=== PATIENT | female | born 2000 ===

== ENCOUNTER 2024-09-05 20:07 | Emergency (ER) | payer MEDICAID, SELFPAY ==
[2024-09-05 20:13] VITALS: BP 133/77; PULSE 89; RESP 16; TEMP 36.8; O2SAT 99; BMI 31.7
--- NOTE | 2024-09-05 20:14 | ED_ITS ---
HPI - General Adult General Chief complaint: Skin/Abscess/Foreign Body Stated complaint: 13 weeks preg/ has itchy rash on left side of face Time Seen by Provider: 09/05/24 22:05 History of Present Illness ED Provider: Brittny BROOKS narrative: The patient is a 24-year-old female. She says that she is approximately 13 weeks . 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 Since began however she developed a new skin problem on her face with a patch of erythema and swelling and vesicles that has been bothering her for almost 2 months. She has seen her bioinformatics technician and she has been on prescription benzoyl peroxide and has also tried a Cera Ve preparation of salicylic acid at the recommendation of her bioinformatics technician as well. She does not feel that either of these topical applications has been helpful. . She feels that the lesion is getting worse and so she came to the emergency room tonight. She says she has not had any culture taken of the lesion. She has not been on any oral antibiotics. Related Data Previous Rx's ?Medication ?Instructions ?Recorded clindamycin HCl 300 mg capsule 300 mg PO TID 8 days #2 4 caps 09/05/24 (Cleocin HCl) mupirocin 2 % topical ointment 1 appl topical TID #22 grams 09/05/24 (Centany) Allergies Allergy/AdvReac Type Severity Reaction Status Date / Time No Known Allergies Allergy Verified 09/05/24 20:16 Review of Systems 2 Review of Systems: Yes all other systems are reviewed and are negative PMFSH Social History Social History Advance Directives: No Advance Directives Information Provided: No Do you have a plan to hurt others: No Plan Physical Exam ED Vital Signs: Vital Signs - 24 hr 09/05/24 20:13 09/05/24 22:52 Temperature 98.3 F 98.3 F Pulse Rate 89 89 Respiratory Rate 16 16 Blood Pressure 133/77 133/77 Pulse Oximetry 99 99 Oxygen Delivery Method Room Air Room Air BMI result Body Mass Index 31.7 Const Other: The patient is a 24-year-old woman who was awake and alert. She has a dense patch of inflamed and pustular skin in the region of the left temporal fossa. Otherwise the patient looks entirely well. Orientation/consciousness: patient oriented x3 HENMT Other: The patient has an area of inflamed skin in the region of the left temporal fossa which is approximately 6 cm by 3 cm in size. The skin is mildly elevated and erythematous and inflamed with multiple white pustules. The face is otherwise unremarkable. Mucous membranes moist. Eyes Other: Pupils are round equal, conjunctivae are clear, extraocular movements intact . The eyes are normal and are not affected by the dense pustules in the left temporal fossa. The eyelids are normal. Neck Other: No appreciable cervical adenopathy. Neck is benign and supple. Resp Effort & Inspection: normal respiratory effort Auscultation: clear to auscultation bilaterally Cardio Rate: regular rate Rhythm: regular rhythm Heart sounds: S1 normal heart sound present and S2 normal heart sound present Skin Other: There is a dense patch of inflamed and pustular skin in the left temporal fossa Neuro General: patient oriented x3, moves all extremities, no focal motor deficits and CN's II-XI intact bilaterally Extrem Other: extremities are normal Course Course Course Narrative: 09/05/242013 JAMILAH Wen This is a Rapid Medical Examination (RME) performed by Jeremiah yMrick PA-C in triage. Full HPI, ROS, assessment and treatment plan per primary provider in the Main ED. Hx: 20 yo F 13 weeks here for eval of itchy rash to L side of face x2-3 months. reports the area is draining pus . saw PCP, prescribed creams without improvement. reports rash is getting worse. +erythematous pustular rash noted to L forehead/face. no mucous membrane involvement Medical Decision Making Medical Decision Making MDM Narrative: the patient is a 24-year-old female who says that she has a history of rosacea who is approximately 13 weeks and has had a skin outbreak in the region of the left temporal fossa for several weeks. She has a bioinformatics technician and has been seen at the dermatology office. She has a tried prescription strength benzoyl peroxide and also formulations with salicylic acid. She has had no improvement and comes to the emergency room at a frustration I think. I unroofed some of the pustular lesions and swab these for cultures. She will be started on clindamycin and topical mupirocin. She should follow up with the bioinformatics technician and her OB provider. She may speak with her OB provider before using either of these medications. Discharge Plan Discharge Clinical Impression: Facial cellulitis Patient Disposition: Home, Self-Care Additional Instructions: I have sent a prescription for antibiotic pills which you may try to see if it helps for this infection. I have also sent a prescription for a topical ointment which you may also try. The pill should be taken 3 times a day, approximately every 8 hours. The ointment should be applied 3 times a day, also a proximally every 8 hours. If you wish you may contact your vegetables cook/obstetrical provider before you start using either of these medications. Also you may contact your bioinformatics technician for their opinion about starting these medications also. I have sent a culture from the infection which may have a result in 2-3 days. This may help guide care. Please make sure that you follow up with both your obstetrical provider and your bioinformatics technician. Return to the emergency room if significantly worse. Prescriptions: New mupirocin [Centany] 2 % ointment 1 appl topical TID Qty: 22 0RF clindamycin HCl [Cleocin HCl] 300 mg capsule 300 mg PO TID 8 Days Qty: 24 0RF Referrals: [facility] [Outside] Angela Edouard CNM [Certified Nurse Briquette Maker, MAIL ROOM CLERK] Yi Borja PA-C [Primary Care Provider, Internal Medicine] Interventions: ED Discharge Assessment Last Done: 09/05/24 22:52 Discharge Date/Time: 09/05/24 22:53 Print Language: [place]
[2024-09-05 22:52] VITALS: BP 133/77; PULSE 89; RESP 16; TEMP 36.8; O2SAT 99
== END 2024-09-05 22:53 | disposition home or self-care (01) ==
PROVIDERS: Emergency Provider Emergency Medicine; PCP Physician Assistant
DX: O26.891 Other specified pregnancy related conditions, first trimester (principal); L03.211 Cellulitis of face; R21 Rash and other nonspecific skin eruption
CPT/HCPCS: 87070; 87147; 87205; 99282; 99283